=== PATIENT | male | born 1945 | race Caucasian/White ===

== ENCOUNTER → 2018-10-19 | Outpatient (CLI) | payer MEDICARE, OTHER ==
[2015-08-02 16:27] VITALS: BP 148/87
[~2018-10-19] MED LIST: ALEN70TA3 PO; ASPI-630 PO; ATOR40TA PO; CLOP75TA57 PO; DICY20TA30 PO; HYDR-3165 PO; NITR0.4T SL; ONDA4TAB10 PO
--- NOTE | 2018-10-19 14:41 | RAD ---
Right lower extremity venous ultrasound, 10/19/2018 : History: Right leg and calf pain Duplex evaluation including grayscale, color flow and spectral Doppler analysis was performed. The femoral and popliteal veins show no filling defects to suggest DVT. The visualized deep veins in the right calf are unremarkable. IMPRESSION: There is no sonographic evidence of deep vein thrombosis in the right lower extremity Electronically signed by: Tex Cui MD (10/19/2018 2:38 PM) [facility]
== END | disposition home or self-care (01) ==
LOC: US 13:47
DX: M79.661 Pain in right lower leg (principal); Z86.718 Personal history of other venous thrombosis and embolism
CPT/HCPCS: 93971

== ENCOUNTER 2021-10-07 13:34 | Emergency (ER) | payer MEDICARE, OTHER ==
[~2021-10-07] VITALS: Ht 195.6 cm; Wt 63.0 kg
[~2021-10-07 13:34] MED LIST changes: -NITR0.4T SL; +NITR0.4T24 SL
[2021-10-07 14:44] VITALS: BP 139/88
--- NOTE | 2021-10-07 14:52 | PHYS DOC ---
Past History Past Medical History: Cancer, NV (TYRONE ARGUETA APRN) Past Surgical History: Cancer Surgery, Cholecystectomy, Other (TYRONE ARGUETA APRN) Alcohol Use: None Drug Use: None (TYRONE ARGUETA APRN) General Adult EDM: Chief Complaint: MALE UROGENITAL PROBLEMS HPI: HPI: Patient is a 75-year-old male presents with complaints of urinary retention. Patient was seen at [facility] this morning and had a CAT scan for chronic abdominal pain. Patient's denies pain with urination and states he has urinated twice while in the ER today. History of NV and cancer. (TYRONE ARGUETA APRN) Review of Systems: Review of Systems: ROS At least 10 ROS systems have been reviewed and are negative except as documented in the HPI. General: Negative except as outlined in HPI above. Skin: Negative except as outlined in HPI above. HEENT: Negative except as outlined in HPI above. Neck: Negative except as outlined in HPI above. Respiratory: Negative except as outlined in HPI above.. Cardiovascular: Negative except as outlined in HPI above. Abdomen: Negative except as outlined in HPI above. : Negative except as outlined in HPI above. Back/MSK: Negative except as outlined in HPI above. Neuro: Negative except as outlined in HPI above. Psych: Negative except as outlined in HPI above. (TYRONE ARGUETA APRN) Allergies: Allergies: Allergies Coded Allergies Type Severity Reaction Last Updated Verified nickel Allergy Intermediate Swelling 07/26/15 Yes (TYRONE ARGUETA APRN) Physical Exam: PE: Constitutional: Well developed, well nourished, no acute distress, non-toxic appearance. [] HENT: Normocephalic, atraumatic, bilateral external ears normal, oropharynx moist, no oral exudates, nose normal. [] Eyes: PERRLA, EOMI, conjunctiva normal, no discharge. [] Neck: Normal range of motion, no tenderness, supple, no stridor. [] Cardiovascular:Heart rate regular rhythm, no murmur [] Lungs & Thorax: Bilateral breath sounds clear to auscultation [] Abdomen: Bowel sounds normal, soft, no tenderness, no masses, no pulsatile masses. [] Skin: Warm, dry, no erythema, no rash. [] Back: No tenderness, no CVA tenderness. [] Extremities: No tenderness, no cyanosis, no clubbing, ROM intact, no edema. [] Neurologic: Alert and oriented X 3, normal motor function, normal sensory function, no focal deficits noted. [] Psychologic: Affect normal, judgement normal, mood normal. [] (TYRONE ARGUETA APRN) EKG: EKG: [] (TYRONE ARGUETA APRN) Radiology/Procedures: Radiology/Procedures: [] (TYRONE ARGUETA APRN) Heart Score: C/O Chest Pain: No Risk Factors: Risk Factors: DM, Current or recent (<one month) smoker, HTN, HLP, family history of CAD, obesity. Risk Scores: Score 0 - 3: 2.5% MACE over next 6 weeks - Discharge Home Score 4 - 6: 20.3% MACE over next 6 weeks - Admit for Clinical Observation Score 7 - 10: 72.7% MACE over next 6 weeks - Early Invasive Strategies (TYRONE ARGUETA APRN) Course & Med Decision Making: Course & Med Decision Making Pertinent Labs and Imaging studies reviewed. (See chart for details) [] 75-year-old male presents with complaints of urinary retention. Bladder scan showed 80 cc. Patient reports he has urinated twice while in the emergency room and once prior to arrival. Denies all other complaints. Denies dysuria. Afebrile. Patient was reporting diarrhea as well. Patient states his diarrhea started this morning. Patient reports that he takes laxatives daily. Advised patient to quit taking laxatives until diarrhea subsides. Patient states he understands discharge instructions. Advised patient to follow-up with his primary care. Patient should return if he has issues with urination. Patient is hemodynamically stable upon disposition. (TYRONE ARGUETA APRN) Dragon Disclaimer: Dragon Disclaimer: This electronic medical record was generated, in whole or in part, using a voice recognition dictation system. (TYRONE ARGUETA APRN) Attending Co-Sign The patient was seen and interviewed as well as examined at the bedside. The chart was reviewed. The case was discussed. Agree with the plan of care. (LONG LOVETT DO) Departure Departure: Impression: Primary Impression: Urinary symptom or sign Disposition: HOME / SELF CARE / HOMELESS Condition: STABLE Referrals: RUBIN PEACOCK I (PCP) Patient Instructions: Urinary Retention, Acute, Male, [id number] Additional Instructions: EMERGENCY DEPARTMENT GENERAL DISCHARGE INSTRUCTIONS Thank you for coming to [facility] (ED) today and trusting us with you care. We trust that you had a positivie experience in our Emergency Department. If you wish to speak to the department management, you may call the director at [phone]. YOUR FOLLOW UP INSTRUCTIONS ARE FOLLOWS: 1. Do you have a private Doctor? If you do not have a private doctor, please ask for a resource list of physicians or clinics that may be able to assist you with follow up care. 2. The Emergency Physician has interpreted your x-rays. The X-Ray specialist will also review them. If there is a change in the findings, you will be notified in 48 hours when at all possible. 3. A lab test or culture has been done, your results will be reviewed and you will be notified if you need a change in treatment. ADDITIONAL INSTRUCTIONS AND INFORMATION: 1. Your care today has been supervised by a physician who is specially trained in emergency care. Many problems require more than one evaluation for a complete diagnosis and treatment. We recommend that you schedule your follow up appointment as recommended to ensure complete treatment of you illness or injury. If you are unable to obtain follow up care and continue to have a problem, or if your condition worsens, we recommend that you return to the ED. 2. We are not able to safely determine your condition over the phone nor are we able to give sound medical advice over the phone. For these safety reasons, if you call for medical advice we will ask you to come to the ED for further evaluation. 3. If you have any questions regarding these discharge instructions please call the ED at [phone]. SAFETY INFORMATION: In the interest of safety, wellness, and injury prevention; we encourage you to wear your sealbelt, if you smoke; quite smoking, and we encourage family to use a protective helmet for bicycling and other sporting events that present an increased risk for head injury. IF YOUR SYMPTOMS WORSEN OR NEW SYMPTOMS DEVELOP, OR YOU HAVE CONCERNS ABOUT YOUR CONDITION; OR IF YOUR CONDITION WORSENS WHILE YOU ARE WAITING FOR YOUR FOLLOW UP APPOINTMENT; EITHER CONTACT YOUR PRIMARY CARE DOCTOR, THE PHYSICIAN WHOSE NAME AND NUMBER YOU WERE GIVEN, OR RETURN TO THE ED IMMEDIATELY. TYRONE ARGUETA APRN Oct 07, 2021 14:52 LONG LOVETT DO Oct 08, 2021 12:52
== END 2021-10-07 15:15 | disposition home or self-care (01) ==
LOC: ER 13:34
DX: R33.9 Retention of urine, unspecified (principal); I25.2 Old myocardial infarction; Z90.49 Acquired absence of other specified parts of digestive tract; Z88.8 Allergy status to other drugs, medicaments and biological substances
CPT/HCPCS: 99284